=== PATIENT | female | born 2000 | race Two or more races ===

== ENCOUNTER 2023-07-04 12:25 | Inpatient (IN) ==
--- NOTE | 2023-07-04 13:06 | Emergency Department Note ---
History of Present Illness General Chief complaint: Mental Health Evaluation Stated complaint: MENTAL HEALTH EVAL Time Seen by Provider: 07/04/23 12:55 History of Present Illness 22-year-old female presents emergency department as she reportedly spoke to outpatient psychiatry and stated that she wanted to harm herself by running in front of car; patient denies any homicidal ideations. Patient denies any inges tions, patient denies alcohol or drugs. Patient was brought in by the police. She states that she is under a lot of stress due to academics and has been evaluated in the past including seeing a counselor last semester. Patient has no other current complaints. Past Med/Surg History Social History Smoking Status: Never smoker Feels Safe at Home: Yes Gender Identity: Female Immunizations: Past medical history includes anxiety Social history patient is a [employer] student Review of Systems A total of 10 systems reviewed and were otherwise negative Psychiatric: + suicidal ideation Physical Exam Vital Signs Vital Signs - 24 hr 07/04/23 12:28 07/04/23 16:00 Temperature 36.5 C Temperature Source Skin Pulse Rate 99 H Pulse Rate [Right Finger] 94 H Pulse Rhythm [Right Finger] Regular Pulse Strength [Right Finger] Normal Respiratory Rate 18 18 Respiratory Effort / Characteristics Non-Labored Spontaneous Respiratory Depth Normal Respiratory Pattern Regular Blood Pressure 127/71 Blood Pressure [Right Arm] 118/69 Blood Pressure Mean 89 Blood Pressure Mean [Right Arm] 85 Blood Pressure Position [Right Arm] Lying Pulse Oximetry 99 96 Oxygen Delivery Method Room Air Sepsis Recent Fever Within 48 Hours No Sepsis New/Unexplained Change in Mental Status No Sepsis Action Taken by Nursing No Action Required GENERAL: Patient is awake alert in no acute distress patient is resting comfortably and showing no signs of anxiety EYES: The conjunctivae are clear. The pupils are round and reactive. EARS, NOSE, MOUTH AND THROAT: The nose is without any evidence of any deformity. Mucous membranes are moist. Tongue is midline. NECK: The neck is nontender and supple. RESPIRATORY: Normal respiratory effort is noted there is no evidence of wheezing rhonchi or rales CARDIOVASCULAR: Regular rate and rhythm noted there no murmurs rubs or gallops normal S1 normal S2. GASTROINTESTINAL: The abdomen is soft. Abdomen is nontender. BACK: No midline tenderness or or step-off noted range of motion in flexion extension as well as rotation no signs of muscle spasm noted MUSCULOSKELETAL/EXTREMITIES: There is no evidence of gross deformity full range of motion is noted in the hips and shoulders. SKIN: There is no obvious evidence of any rash. There are no petechiae, pallor or cyanosis noted. NEUROLOGIC: Patient is awake alert and oriented x3 strength is symmetric PSYCH: Suicidal ideation Course Reevaluation(s) Reevaluation #1: Rechecked the patient the patient has no history of anemia no family history of anemia. The patient states she does have at times heavy periods. She has never had blood work done in the past. Time: 14:30 Reevaluation #2: Patient is medically cleared for psychiatric evaluation Time: 14:30 Medical Decision Making Medical Records Attestation: I reviewed the patient's medical records. Home Medications Current Medication List: was personally reviewed by me Laboratory Data Attestation: I reviewed the patient's lab results. Labs interpreted by me patient has a hemoglobin of 8.1 which is a sign of anemia, patient has hypokalemia 07/04/23 13:12 07/04/23 13:12 Lab Results 07/04/23 07/04/23 07/04/23 Range/Units 13:12 13:12 13:12 WBC 8.95 (4.8-10.8) K/ul RBC 4.44 (4.20-5.40) M/uL Hgb 8.1 L (12.0-16.0) g/dl Hct 27.9 L (37.0-47.0) % MCV 62.8 L (80.0-100.0) fL MCH 18.2 L (25.0-34.0) pg MCHC 29.0 L (32.0-36.0) g/dL RDW Std Deviation 39.2 (36.4-46.3) fL RDW Coeff of Bhavik 18.0 H (11.5-14.5) % Plt Count 369 (130-400) K/uL MPV 9.8 (9.4-12.4) fL Immature Gran % (Auto) 0.2 % Neut % (Auto) 47.3 % Lymph % (Auto) 30.6 % Huron % (Auto) 6.6 % Eos % (Auto) 14.7 % Baso % (Auto) 0.6 % Neut # (Auto) 4.23 (1.40-6.50) K/uL Lymph # (Auto) 2.74 (1.20-3.40) K/uL Huron # (Auto) 0.59 (0.11-0.59) K/uL Eos # (Auto) 1.32 H (0.00-0.50) K/uL Baso # (Auto) 0.05 (0.00-0.20) K/uL Immature Gran # (Auto) 0.02 (0.01-0.20) K/uL Hypochromasia Present Microcytosis Present Sodium 137 (136-145) mmol/L Potassium 3.2 L (3.5-5.1) mmol/L Chloride 107 (98-107) mmol/L Carbon Dioxide 25 (21-32) mmol/L Anion Gap 5 (3-11) BUN 8 (6-23) mg/dl Creatinine 0.61 (0.6-1.2) mg/dl Est Cr Clr Drug Dosing 99.5 ml/min Est GFR ( Amer) > 150.0 ml/min Est GFR (Non-Af Amer) 129.6 ml/min BUN/Creatinine Ratio 13.1 (10-20) Glucose 120 H (70-99(Fasting)) mg/dl Calcium 9.4 (8.6-10.3) mg/dl Total Bilirubin 0.3 (0.2-1.0) mg/dl AST 20 (13-39) U/L ALT 9 (7-52) U/L Alkaline Phosphatase 60 (34-104) U/L Total Protein 8.4 H (6.0-8.3) gm/dl Albumin 4.7 (3.4-5.0) gm/dl Globulin 3.7 (2.5-4.0) gm/dl Albumin/Globulin Ratio 1.3 (0.9-2) TSH 2.331 (0.300-4.500) uIu/ml Urine Color Urine Appearance (Clear) Urine pH (4.5-7.5) Ur Specific Cylinder (1.000-1.030) Urine Protein (Negative) Urine Glucose (UA) (Negative) Urine Ketones (Negative) Urine Blood (Negative) Urine Nitrite (Negative) Urine Bilirubin (Negative) Urine Urobilinogen (Negative) Ur Leukocyte Esterase (Negative) Urine Test (Negative) Salicylates < 3.0 L (3.0-30) mg/dl Acetaminophen < 3 L (10-30) ug/ml Ethyl Alcohol mg/dL (<10.0) mg/dl SARS-CoV-2, RNA, NAAT (NEGATIVE) 07/04/23 07/04/23 07/04/23 Range/Units 13:12 Unknown Unknown WBC (4.8-10.8) K/ul RBC (4.20-5.40) M/uL Hgb (12.0-16.0) g/dl Hct (37.0-47.0) % MCV (80.0-100.0) fL MCH (25.0-34.0) pg MCHC (32.0-36.0) g/dL RDW Std Deviation (36.4-46.3) fL RDW Coeff of Bhavik (11.5-14.5) % Plt Count (130-400) K/uL MPV (9.4-12.4) fL Immature Gran % (Auto) % Neut % (Auto) % Lymph % (Auto) % [place] % (Auto) % Eos % (Auto) % Baso % (Auto) % Neut # (Auto) (1.40-6.50) K/uL Lymph # (Auto) (1.20-3.40) K/uL Huron # (Auto) (0.11-0.59) K/uL Eos # (Auto) (0.00-0.50) K/uL Baso # (Auto) (0.00-0.20) K/uL Immature Gran # (Auto) (0.01-0.20) K/uL Hypochromasia Microcytosis Sodium (136-145) mmol/L Potassium (3.5-5.1) mmol/L Chloride (98-107) mmol/L Carbon Dioxide (21-32) mmol/L Anion Gap (3-11) BUN (6-23) mg/dl Creatinine (0.6-1.2) mg/dl Est Cr Clr Drug Dosing ml/min Est GFR ( Amer) ml/min Est GFR (Non-Af Amer) ml/min BUN/Creatinine Ratio (10-20) Glucose (70-99(Fasting)) mg/dl Calcium (8.6-10.3) mg/dl Total Bilirubin (0.2-1.0) mg/dl AST (13-39) U/L ALT (7-52) U/L Alkaline Phosphatase (34-104) U/L Total Protein (6.0-8.3) gm/dl Albumin (3.4-5.0) gm/dl Globulin (2.5-4.0) gm/dl Albumin/Globulin Ratio (0.9-2) TSH (0.300-4.500) uIu/ml Urine Color Yellow Urine Appearance Clear (Clear) Urine pH 5.5 (4.5-7.5) Ur Specific Cylinder 1.006 (1.000-1.030) Urine Protein Negative (Negative) Urine Glucose (UA) Negative (Negative) Urine Ketones Negative (Negative) Urine Blood Negative (Negative) Urine Nitrite Negative (Negative) Urine Bilirubin Negative (Negative) Urine Urobilinogen Negative (Negative) Ur Leukocyte Esterase Negative (Negative) Urine Test Negative (Negative) Salicylates (3.0-30) mg/dl Acetaminophen (10-30) ug/ml Ethyl Alcohol mg/dL < 10.0 (<10.0) mg/dl SARS-CoV-2, RNA, NAAT (NEGATIVE) 07/04/23 Range/Units Unknown WBC (4.8-10.8) K/ul RBC (4.20-5.40) M/uL Hgb (12.0-16.0) g/dl Hct (37.0-47.0) % MCV (80.0-100.0) fL MCH (25.0-34.0) pg MCHC (32.0-36.0) g/dL RDW Std Deviation (36.4-46.3) fL RDW Coeff of Bhavik (11.5-14.5) % Plt Count (130-400) K/uL MPV (9.4-12.4) fL Immature Gran % (Auto) % Neut % (Auto) % Lymph % (Auto) % [place] % (Auto) % Eos % (Auto) % Baso % (Auto) % Neut # (Auto) (1.40-6.50) K/uL Lymph # (Auto) (1.20-3.40) K/uL [place] # (Auto) (0.11-0.59) K/uL Eos # (Auto) (0.00-0.50) K/uL Baso # (Auto) (0.00-0.20) K/uL Immature Gran # (Auto) (0.01-0.20) K/uL Hypochromasia Microcytosis Sodium (136-145) mmol/L Potassium (3.5-5.1) mmol/L Chloride (98-107) mmol/L Carbon Dioxide (21-32) mmol/L Anion Gap (3-11) BUN (6-23) mg/dl Creatinine (0.6-1.2) mg/dl Est Cr Clr Drug Dosing ml/min Est GFR ( Amer) ml/min Est GFR (Non-Af Amer) ml/min BUN/Creatinine Ratio (10-20) Glucose (70-99(Fasting)) mg/dl Calcium (8.6-10.3) mg/dl Total Bilirubin (0.2-1.0) mg/dl AST (13-39) U/L ALT (7-52) U/L Alkaline Phosphatase (34-104) U/L Total Protein (6.0-8.3) gm/dl Albumin (3.4-5.0) gm/dl Globulin (2.5-4.0) gm/dl Albumin/Globulin Ratio (0.9-2) TSH (0.300-4.500) uIu/ml Urine Color Urine Appearance (Clear) Urine pH (4.5-7.5) Ur Specific Cylinder (1.000-1.030) Urine Protein (Negative) Urine Glucose (UA) (Negative) Urine Ketones (Negative) Urine Blood (Negative) Urine Nitrite (Negative) Urine Bilirubin (Negative) Urine Urobilinogen (Negative) Ur Leukocyte Esterase (Negative) Urine Test (Negative) Salicylates (3.0-30) mg/dl Acetaminophen (10-30) ug/ml Ethyl Alcohol mg/dL (<10.0) mg/dl SARS-CoV-2, RNA, NAAT NEGATIVE (NEGATIVE) MDM Narrative Medical decision making differential diagnosis includes suicidal ideation, homicidal ideation, anxiety reaction Plan is to check psychiatric labs, case management consult Case management states that the patient will be placed for psychiatric evaluation Patient is currently medically cleared, the patient has no symptoms to suggest severe anemia Pt has been referred to [address] [place] [address] for eval; Case turned over to Dr Scott at 1630 pending disposition Impression & Plan Suicidal ideation, Anemia Discharge Plan Visit Data Chief Complaint: Mental Health Evaluation Stated Complaint: MENTAL HEALTH EVAL ED Provider: Cher Scott Discharge Problem: Suicidal ideation, Anemia Patient Disposition: Still a Patient Forms Stand Alone Forms: [facility] [place], Suicide Prevention Resources Referrals Referrals: PCP,NO [Primary Care Provider] -
[2023-07-04 13:39] LABS: Basophils # (auto) 0.05 K/uL (0.00-0.20); Basophils % (auto) 0.6 %; Eosinophils # (auto) 1.32 K/uL (0.00-0.50); Eosinophils % (auto) 14.7 %; Hematocrit (blood only) 27.9 % (37.0-47.0); Hemoglobin 8.1 g/dl (12.0-16.0); Immature Granulocytes # (auto) 0.02 K/uL (0.01-0.20); Immature Granulocytes % (auto) 0.2 %; Lymphocytes # (auto) 2.74 K/uL (1.20-3.40); Lymphocytes % (auto) 30.6 %; Mean Corpuscular Hemoglobin 18.2 pg (25.0-34.0); Mean Corpuscular Volume 62.8 fL (80.0-100.0); Monocytes # (auto) 0.59 K/uL (0.11-0.59); Monocytes % (auto) 6.6 %; Neutrophils # (auto) 4.23 K/uL (1.40-6.50); Neutrophils % (auto) 47.3 %; RDW Standard Deviation 39.2 fL (36.4-46.3); Red Blood Count 4.44 M/uL (4.20-5.40); White Blood Count 8.95 K/ul (4.8-10.8)
[2023-07-04 13:51] LABS: Alanine Aminotransferase 9 U/L (7-52); Albumin Globulin Ratio 1.3 (0.9-2); Albumin Level 4.7 gm/dl (3.4-5.0); Alkaline Phosphatase 60 U/L (34-104); Anion Gap 5 (3-11); Aspartate Aminotransferase 20 U/L (13-39); BUN Creatinine Ratio 13.1 (10-20); Bilirubin,Total 0.3 mg/dl (0.2-1.0); Blood Urea Nitrogen 8 mg/dl (6-23); Calcium 9.4 mg/dl (8.6-10.3); Carbon Dioxide 25 mmol/L (21-32); Chloride 107 mmol/L (98-107); Creatinine Clr Calc Pharmacy 99.5 ml/min; Est GFR (African American) > 150.0 ml/min; Est GFR (Non-African American) 129.6 ml/min; Globulin 3.7 gm/dl (2.5-4.0); Glucose 120 mg/dl (70-99(Fasting)); Potassium 3.2 mmol/L (3.5-5.1); Sodium 137 mmol/L (136-145); Total Protein 8.4 gm/dl (6.0-8.3)
[2023-07-04 13:55] LABS: Acetaminophen < 3 ug/ml (10-30); Salicylate < 3.0 mg/dl (3.0-30)
[2023-07-04 14:03] LABS: Hypochromasia Present; Mean Platelet Volume 9.8 fL (9.4-12.4); Microcytosis Present; Platelet Count 369 K/uL (130-400)
[2023-07-04 14:04] LABS: Thyroid Stimulating Hormone 2.331 uIu/ml (0.300-4.500)
[2023-07-04 15:04] LABS: Pregnancy Test, Urine Negative (Negative)
[2023-07-04 15:15] LABS: Appearance Urine Clear (Clear); Bilirubin Urine Negative (Negative); Blood Urine Negative (Negative); Color Urine Yellow; Glucose Urine UA Negative (Negative); Ketones Urine Negative (Negative); Leukocyte Esterase Urine Negative (Negative); Nitrite Urine Negative (Negative); Protein Urine Negative (Negative); Specific Gravity Urine 1.006 (1.000-1.030); Urobilinogen Urine Negative (Negative); pH Urine 5.5 (4.5-7.5)
--- NOTE | 2023-07-04 17:00 | Emergency Department Note ---
ED Visit Note I received this patient in signout at the change of shift from Dr. Blunt pending bed search on a 201 as she is suicidal with a plan. Patient was ex cepted to [facility] [address] for inpatient psychiatric admission. Please refer to previous documentation for further details of the history, physical and visit. .
[2023-07-04 17:09] LABS: Amphetamines+Metham, Urine Neg (Neg); Barbiturates, Urine Neg (Neg); Benzodiazepine, Urine Neg (Neg); Cocaine, Urine Neg (Neg); MDMA (Ecstacy), Urine Neg (Neg); Methadone, Urine Neg (Neg); Opiate, Urine Neg (Neg); Phencyclidine, Urine Neg (Neg)
[2023-07-05] MEDS ORDERED: BISMUTH SUBSALICYLATE LIQD 236 ML PO PRN (00:08)
[2023-07-05] MEDS ORDERED: hydrOXYzine HCl 25 MG TAB PO PRN ×2 (00:08)
[2023-07-05] MEDS ORDERED: MAGNESIUM HYDROXIDE SUSP 30 ML UDC PO PRN (00:08)
[2023-07-05] MEDS ORDERED: SODIUM CHLORIDE 0.65% NA SOLN 45 ML (OCEAN) PRN (00:08)
[2023-07-05] MEDS ORDERED: ACETAMINOPHEN 325 MG TAB PO PRN (00:08)
[2023-07-05] MEDS ORDERED: ALUMINUM/MAGNESIUM SUSP 30 ML UDC PO PRN (00:08)
--- NOTE | 2023-07-05 11:11 | History & Physical ---
Date of Service July 05, 2023 Impression / Recommendations Impression Profoundly depressed young woman with a long history of depressive episodes and chronic suicidal thoughts but no history of any previous diagnosis or treatment. She presents with classic melancholic features. She also reports anxiety with numerous features of panic. She minimizes and elides alcohol use, but has been drinking more than usual. It also transpires that she has a severe vitamin d deficiency. She is currently psychiatrically unstable and requires psychiatric hospitalization for safety, stabilization, and medication management. Risks and benefits of, and alternatives to, the use of mirtazapine (Remeron) for Major Depression symptoms, especially including insomnia and poor appetite were reviewed. This discussion included but was not limited to issues known potentially to be associated with use of such medication, especially at high doses or with longer use, including sedation, weight gain, GI side effects, or rarely induction or worsening of suicidal thoughts about which there is an FDA w arning for adolescents and young adults. The patient agreed to start a trial of mirtazapine. Overall I spent a total of 73 minutes for this admission including review of chart records, review of test results, direct evaluation of the patient [id number], counseling the patient, reconciling and ordering medication, medication education with the patient, risk assessment, discussion during interdisciplinary treatment rounds, and documentation in the electronic health record. (1) Major depressive disorder, recurrent, severe without psychotic features: (2) Vitamin D deficiency: Plan The patient was admitted to the [facility] ([facility]) on q15 minute checks (behavioral with suicide precautions) for safety.The patient will participate in group, recreational, and milieu therapies and will be offered additional individual and family sessions as clinically appropriate. * start mirtazapine 30 mg QPM * start vitamin D2 50,000 IU twice a week Inventory Assets Strengths: voluntary, intelligent Needs: safety and stabilization, medication adjustment, additional coping skills, increased outpatient services Suicide Risk Level Suicide Risk Level: High-Moderate (q15 min suicide checks) Suicide Risk Level Comments: contracts for safety here, but intense suicidal thoughts prior to admission Risk Factors Assessment Male: No : No Do You Have Access To A Gun?: No Health Problems: No Mental Health Diagnoses: No Substance Use Disorders: Yes Previous Attempt: No Previous Psychiatric Hospitalization: No Protective Factors Assessment : No Responsible for Young Children: No Employed: No Supportive Family: No Psychiatric History Identifying Data CAROLINA NORWOOD is a 22-year-old F who currently lives in a dorm room at [employer] alone, has a history of depression symptoms but no previous diagnosis or treatment, and was admitted on 07/04/23 17:58 on a 201 voluntary commitment for suicidal thoughts. Chief Complaint "I'm not doing OK". History of Present Illness As part of a thorough review of the available medical records, I have read and confirmed the following note by the ED physician: "22-year-old female presents emergency department as she reportedly spoke to outpatient psychiatry and stated that she wanted to harm herself by running in front of car; patient denies any homicidal ideations. Patient denies any ingestions, patient denies alcohol or drugs. Patient was brought in by the police. She states that she is under a lot of stress due to academics and has been evaluated in the past including seeing a counselor last semester." and the following notes by the ED psychiatric family caseworker: "The patient initially stated she didnt have suicidal ideation but when questioned about her comments to [facility], she admitted to thinking of running in front of a car. When asked later if she was still having suicidal ideations, she laughed and said yes. The patient reports her main stressor is school and that she reached out to [facility] looking for help. The patient denies any drug or alcohol use or ever being inpatient for treatment (reports she utilized [facility] as well last year). Medical clearance explained." "Update received from Ellen with [facility] prior to meeting with the patient. She reports they dont feel they have enough criteria to petition for a 302, but the patients stories seemed to be inconsistent at times. She reports the patient had moved and she didnt know where, but the told them they moved to [place] and she just didnt know their address. Ellen also reports the patient initially denied D&A but then admitted to use." "Patient presents sad, flat, speaks softly, but remains cooperative in answering questions asked of her. Patient reports suicidal ideations for as long as she remembers, but recently these thought now felt real. Patient identified plan as to jump in front of car or train or to mix medications with alcohol. Patient is very unsure if she can be self by herself. Patient has not been submitting coursework for 5 weeks, reporting school was primary motivation for living, but she no longer feels that way. Patient reports depressive symptoms as socially withdrawing, lack of motivation, loss of daily functioning, feelings of helpless/hopelessness, decrease in concentration, appetite and completing ADLs. Patient reports mild anxiety on most days with symptoms of excessive worry, palpitations and trembling. Patient reports occasional alcohol use, denies drug or tobacco use. 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 Although patient is not submitting school work, she is taking quizzes and tests and has passing grades. Patient saw [facility] today, but has a history of seeing them last semester. Patient does not taking any medications, nor has any medical conditions. Explained to patient that the doctors recommendation is for inpatient psychiatric treatment, patient is agreeable to sign herself in and to participate in programming." Review of the medical record reveals no previous or outside psychiatric records. Review of pertinent labs reveals they are significant for microcytic, hypoch romic anemia, hypokalemia. A urine toxicology screen was negative for all tested substrates. BAL was <10. A vitamin D level drawn earlier today was severely deficient at 8.4 ng/mL. Pt reports a history of episodes during which she has no interest, energy, motivation and during which her concentration is poor, she's anhedonic, her sleep and appetite are poor, and she feels hopeless or suicidal. She has never sought treatment before. The current episode started about a month and a half ago. She has spent most of her time in bed, but says she has a lot of trouble getting to sleep then wakes often. She never feels rested after sleeping. She insists her appetite is "normal" and that she goes to the [facility] for meals. Her appearance and her report of rarely getting out of bed seem to be at odds with this. Despite saying that her academic work is what keeps her going, she hasn't attended classes for over a month. She says her grades are OK because she does tests and quizzes online. Her chronic vague suicidal thoughts have become intrusive and constant and she's begun entertaining specific plans such as jumping in front of a train or overdosing on something. She acknowledges she's "been drinking some" but is very guarded about amounts. Past Psychiatric History Previous Psych History: has not sought treatment in the past Current Psychiatric Diagnosis: none Previous Psych Admissions: none Do You Have Access To A Gun?: No History of Previous Suicide Attempt: No Past Medication Trials: none Allergies Allergy/AdvReac Type Severity Reaction Status Date / Time No Known Allergies Allergy Unverified 07/05/23 00:07 Family History Family History of: Other Mood Disorders Family Mental Health History Comment: dad- PTSD, suicide attempt 1 year ago Alcohol History Hx of Alcohol Use Over the Past 12 Months: Yes AUDIT Total Score: 4 Smoking Use Have You Smoked or Used Tobacco Products in the Last 30 Days: No Smoking Status: Never smoker Substance History Hx of Prescription Med Misuse Over the Past 12 Months: No Hx of Over the Counter Med Misuse Over the Past 12 Months: No Hx of Inhalent Misuse Over the Past 12 Months: No Hx of Organic Substance Use Over the Past 12 Months: No Hx of Illegal Substances/Street Drug Use Over Past 12 Months: No Problems as a Result of Past Substance Use: None Identified Problems as a Result of Past Substance Use Comments: Once every 3 months Personal History Living Arrangements: [facility] Highest Grade Completed: College Highest Grade Completed Comment: 4th year [employer] student Marital Status: Single Number Of Children: 0 Patient History Medical History (Updated 07/05/23 @ 16:02 by Roni Chilel MD) Major depressive disorder, recurrent, severe without psychotic features Vitamin D deficiency Social History Smoking Status: Never smoker Preferred Language: Prydeinig Communication Ability: Effective Claims Service Adjustor Required: Voice Feels Safe at Home: No Gender Identity: Female Assistive Devices: Glasses Review of Systems Psychiatric: + depression, + hopelessness, + anhedonia, + abnormal sleep pattern, + suicidal ideation, + anxiety and + difficulty concentrating Physical Exam Psychiatric: Orientation: alert, oriented to person, oriented to place, oriented to time and cooperative Apperance: appropriately dressed and appropriately groomed thin Eye Contact: + poor eye contact sits repetitively picking at the hems of her trousers or, when not doing that, wringing her hands Speech: + abnormal rate/rhythm/volume of speech (increased latency of response, slow, quiet, brief) does not respond to all questions Affect: + labile affect (ranging from flat to tearful) Mood: + depressed mood and + anxious mood Thought Process: linear/logical thought process and thought association intact Thought Content: + cognitive distortions, + hopelessness, + worthlessness, + loneliness and + self deprecation Suicidal Thoughts: denies suicidal intent; + reports suicidal thoughts and + reports suicidal plan Homicidal Thoughts: denies homicidal thoughts Hallucinations: no auditory hallucinations and no visual hallucinations Cognition: recent memory grossly intact, remote memory grossly intact and language grossly intact; + attention not intact (appears very distracted) Estimated Intelligence: consistent with education level Insight: + limited insight Judgment: + limited judgement Vital Signs (Past 24 Hours): Last Vital Signs Temp 36.9 C 07/05/23 06:39 Pulse 84 07/05/23 06:39 Resp 16 07/05/23 06:39 BP 111/75 07/05/23 06:39 Pulse Ox 100 07/04/23 18:36 O2 Del Method Room Air 07/04/23 18:36 Exam Statement: A physical exam was performed in the ED for the purposes of medical clearance. I accept that physical as correct and adequate for the purposes of the inpatient physical exam. Results & Data ([facility]) Laboratory Results Laboratory Results - last 24 hr 07/04/23 07/04/23 07/04/23 13:12 13:12 13:12 WBC 8.95 RBC 4.44 Hgb 8.1 L Hct 27.9 L MCV 62.8 L MCH 18.2 L MCHC 29.0 L RDW Std Deviation 39.2 RDW Coeff of Bhavik 18.0 H Plt Count 369 MPV 9.8 Immature Gran % (Auto) 0.2 Neut % (Auto) 47.3 Lymph % (Auto) 30.6 Craig % (Auto) 6.6 Eos % (Auto) 14.7 Baso % (Auto) 0.6 Neut # (Auto) 4.23 Lymph # (Auto) 2.74 Craig # (Auto) 0.59 Eos # (Auto) 1.32 H Baso # (Auto) 0.05 Immature Gran # (Auto) 0.02 Hypochromasia Present Microcytosis Present Sodium 137 Potassium 3.2 L Chloride 107 Carbon Dioxide 25 Anion Gap 5 BUN 8 Creatinine 0.61 Est Cr Clr Drug Dosing 99.5 Est GFR ( Amer) > 150.0 Est GFR (Non-Af Amer) 129.6 BUN/Creatinine Ratio 13.1 Glucose 120 H Calcium 9.4 Total Bilirubin 0.3 AST 20 ALT 9 Alkaline Phosphatase 60 Total Protein 8.4 H Albumin 4.7 Globulin 3.7 Albumin/Globulin Ratio 1.3 TSH 2.331 Urine Color Urine Appearance Urine pH Ur Specific [place] Urine Protein Urine Glucose (UA) Urine Ketones Urine Blood Urine Nitrite Urine Bilirubin Urine Urobilinogen Ur Leukocyte Esterase Urine Test Salicylates < 3.0 L Urine Opiates Screen Ur Methadone, Qual Acetaminophen < 3 L Urine Barbiturates Ur Phencyclidine (PCP) U Amphetamin/Meth Scrn MDMA (Ecstasy) Screen U Benzodiazepines Scrn Ur Cocaine Metabolite U Marijuana (THC) Screen Ethyl Alcohol mg/dL SARS-CoV-2, RNA, NAAT 07/04/23 07/04/23 07/04/23 13:12 Unknown Unknown WBC RBC Hgb Hct MCV MCH MCHC RDW Std Deviation RDW Coeff of Bhavik Plt Count MPV Immature Gran % (Auto) Neut % (Auto) Lymph % (Auto) Craig % (Auto) Eos % (Auto) Baso % (Auto) Neut # (Auto) Lymph # (Auto) Craig # (Auto) Eos # (Auto) Baso # (Auto) Immature Gran # (Auto) Hypochromasia Microcytosis Sodium Potassium Chloride Carbon Dioxide Anion Gap BUN Creatinine Est Cr Clr Drug Dosing Est GFR ( Amer) Est GFR (Non-Af Amer) BUN/Creatinine Ratio Glucose Calcium Total Bilirubin AST ALT Alkaline Phosphatase Total Protein Albumin Globulin Albumin/Globulin Ratio TSH Urine Color Yellow Urine Appearance Clear Urine pH 5.5 Ur Specific Pa[place] 1.006 Urine Protein Negative Urine Glucose (UA) Negative Urine Ketones Negative Urine Blood Negative Urine Nitrite Negative Urine Bilirubin Negative Urine Urobilinogen Negative Ur Leukocyte Esterase Negative Urine Test Salicylates Urine Opiates Screen Neg Ur Methadone, Qual Neg Acetaminophen Urine Barbiturates Neg Ur Phencyclidine (PCP) Neg U Amphetamin/Meth Scrn Neg MDMA (Ecstasy) Screen Neg U Benzodiazepines Scrn Neg Ur Cocaine Metabolite Neg U Marijuana (THC) Screen Neg Ethyl Alcohol mg/dL < 10.0 SARS-CoV-2, RNA, NAAT 07/04/23 07/04/23 Unknown Unknown WBC RBC Hgb Hct MCV MCH MCHC RDW Std Deviation RDW Coeff of Bhavik Plt Count MPV Immature Gran % (Auto) Neut % (Auto) Lymph % (Auto) Craig % (Auto) Eos % (Auto) Baso % (Auto) Neut # (Auto) Lymph # (Auto) Craig # (Auto) Eos # (Auto) Baso # (Auto) Immature Gran # (Auto) Hypochromasia Microcytosis Sodium Potassium Chloride Carbon Dioxide Anion Gap BUN Creatinine Est Cr Clr Drug Dosing Est GFR ( Amer) Est GFR (Non-Af Amer) BUN/Creatinine Ratio Glucose Calcium Total Bilirubin AST ALT Alkaline Phosphatase Total Protein Albumin Globulin Albumin/Globulin Ratio TSH Urine Color Urine Appearance Urine pH Ur Specific [place] Urine Protein Urine Glucose (UA) Urine Ketones Urine Blood Urine Nitrite Urine Bilirubin Urine Urobilinogen Ur Leukocyte Esterase Urine Test Negative Salicylates Urine Opiates Screen Ur Methadone, Qual Acetaminophen Urine Barbiturates Ur Phencyclidine (PCP) U Amphetamin/Meth Scrn MDMA (Ecstasy) Screen U Benzodiazepines Scrn Ur Cocaine Metabolite U Marijuana (THC) Screen Ethyl Alcohol mg/dL SARS-CoV-2, RNA, NAAT NEGATIVE Current Inpatient Medications Current Inpatient Medications: Current Inpatient Medications Acetaminophen (Acetaminophen 325 Mg Tab) 650 mg PO Q4H PRN PRN Reason: Headache or Minor Fever Stop: 08/04/23 00:07 Al Hydrox/Mg Hydrox/Simethicone (Aluminum/Magnesium Susp 30 Ml Udc) 30 ml PO Q4H PRN PRN Reason: GI Upset Stop: 08/04/23 00:07 Bismuth Subsalicylate (Bismuth Subsalicylate Liqd 236 Ml) 15 ml PO PRN PRN PRN Reason: Loose Stool Stop: 08/04/23 00:07 Hydroxyzine HCl (Hydroxyzine Hcl 25 Mg Tab) 50 mg PO HSZ PRN PRN Reason: Insomnia Stop: 08/04/23 00:07 Hydroxyzine HCl (Hydroxyzine Hcl 25 Mg Tab) 25 mg PO Q4H PRN PRN Reason: Anxiety Stop: 08/04/23 00:07 Magnesium Hydroxide (Magnesium Hydroxide Susp 30 Ml Udc) 30 ml PO DAILY PRN PRN Reason: Constipation Stop: 08/04/23 00:07 Mirtazapine (Mirtazapine Tab 15 Mg Tab) 30 mg PO HS JOANNA Stop: 08/04/23 21:59 Sodium Chloride (Sodium Chloride 0.65% Na Soln 45 Ml ([place])) 1 - 2 sprays NA PRN PRN PRN Reason: Nasal Dryness/Congestion Stop: 08/04/23 00:07
[2023-07-05 12:55] LABS: Folate (Folic Acid),Ser orPlas > 22.30 ng/ml (>5.38)
[2023-07-05 12:56] LABS: Vitamin B12 300 pg/ml (180-914)
[2023-07-05] MEDS: ERGOCALCIFEROL 50,000 UNITS 1250 MCG CAP PO SCH (16:34)
[2023-07-05] MEDS: MIRTAZAPINE TAB 15 MG TAB PO SCH (21:18)
--- NOTE | 2023-07-06 09:19 | Psychiatric Progress Note ---
Date of Service July 06, 2023 Impression / Recommendations Impression Agree with assessment per Dr. Chilel: Profoundly depressed young woman with a long history of depressive episodes and chronic suicidal thoughts but no history of any previous diagnosis or treatment. She presents with classic melancholic features. She also reports anxiety with numerous features of panic. She minimizes and elides alcohol use, but has been drinking more than usual. It also transpires that she has a severe vitamin d deficiency. She is currently psychiatrically unstable and requires psychiatric hospitalization for safety, stabilization, and medication management. 07/06/2023: Reviewed interim progress. Slept better with mirtazapine but continues to present as very depressed as well as likely significant anxiety with latent responses, flat affect, little spontaneous conversation, and poor eye contact. Unclear if PADILLA is due to mirtazapine, she would like to continue with this for now, discussed option for augmentation with additional SSRI, she prefers to try mirtazapine monotherapy for now which is reasonable. Overall, I spent a total of 35 minutes with this case including review of chart records, direct evaluation of the patient at bedside, counseling the patient, discussion during interdisciplinary treatment rounds, risk assessment, and documentation in the electronic health record. (1) Major depressive disorder, recurrent, severe without psychotic features: (2) Vitamin D deficiency: Plan 07/06/2023: Continue current medications and tx plan. 07/05/2023: The patient [facility] on q15 minute checks (behavioral with suicide precautions) for safety.The patient will participate in group, recreational, and milieu therapies and will be offered additional individual and family sessions as clinically appropriate. * start mirtazapine 30 mg QPM * start vitamin D2 50,000 IU twice a week Inventory Assets Strengths: voluntary, intelligent Needs: safety and stabilization, medication adjustment, additional coping skills, increased outpatient services Suicide Risk Level Suicide Risk Level: High-Moderate (q15 min suicide checks) (severe depression with SI prior to admission, feels safe in the hospital and agrees to let staff know if she feels unsafe or requires additional support) Suicide Risk Level Comments: contracts for safety here, but intense suicidal thoughts prior to admission Risk Factors Assessment Male: No : No Do You Have Access To A Gun?: No Health Problems: No Mental Health Diagnoses: No Substance Use Disorders: Yes Previous Attempt: No Previous Psychiatric Hospitalization: No Protective Factors Assessment : No Responsible for Young Children: No Employed: No Supportive Family: No Interval History Identifying Information CAROLINA NORWOOD is a 22-year-old F who currently lives in a dorm room at [employer] alone, has a history of depression symptoms but no previous diagnosis or treatment, and was admitted on 07/04/23 17:58 on a 201 voluntary commitment for suicidal thoughts. Chief Complaint "It put me to sleep pretty quickly". Review of Systems Sleep Information Total Hours of Sleep: 6.75 Meal Information Percent Meal Consumed - Breakfast: 75 Percent Meal Consumed - Lunch: 100 Percent Meal Consumed - Dinner: 80 Subjective Subjective Patient was seen & assessed and interval progress reviewed with treatment team nursing and social work. Very shy and reserved but attending groups. Rated her mood as a 5 and described it as "confused" last evening. Slept well with mirtazapine but having headache today which she thinks could be side effect though notes she often has headaches at baseline. Offered acetaminophen which she is agreeable to taking. Has less SI today which she attributes to pain from her headache being a distraction. Physical Exam Psychiatric Orientation: alert, oriented x 3 and cooperative Apperance: appropriately dressed and appropriately groomed Eye Contact: + poor eye contact Motor Behavior: no abnormal motor movements Speech: + abnormal rate/rhythm/volume of speech (increased latency of response, slow, quiet, brief) Affect: + flat affect Mood: + depressed mood and + anxious mood Thought Process: linear/logical thought process (sparse) Thought Content: + cognitive distortions, reality based without delusions and + hopelessness Suicidal Thoughts: denies suicidal plan (none for hospital) and denies suicidal intent; + reports suicidal thoughts (intermittent ) Homicidal Thoughts: denies homicidal thoughts Hallucinations: no auditory hallucinations and no visual hallucinations Cognition: recent memory grossly intact, remote memory grossly intact and language grossly intact; + attention not intact (unclear if due to latency) Estimated Intelligence: consistent with education level Insight: + limited insight Judgment: + limited judgement Vital Signs (Past 24 Hours) Last Vital Signs Temp 37.1 C 07/06/23 06:36 Pulse 78 07/06/23 06:36 Resp 16 07/06/23 06:36 BP 92/57 L 07/06/23 06:36 Pulse Ox 100 07/04/23 18:36 O2 Del Method Room Air 07/04/23 18:36 Results & Data ([facility]) Laboratory Results Laboratory Results - last 24 hr 07/05/23 07/05/23 07/05/23 11:52 11:52 11:52 ESR 29 H Vitamin B12 300 25-OH Vitamin D Total 8.4 L Folate > 22.30 Current Inpatient Medications Current Inpatient Medications: Current Inpatient Medications Acetaminophen (Acetaminophen 325 Mg Tab) 650 mg PO Q4H PRN PRN Reason: Headache or Minor Fever Stop: 08/04/23 00:07 Al Hydrox/Mg Hydrox/Simethicone (Aluminum/Magnesium Susp 30 Ml Udc) 30 ml PO Q4H PRN PRN Reason: GI Upset Stop: 08/04/23 00:07 Bismuth Subsalicylate (Bismuth Subsalicylate Liqd 236 Ml) 15 ml PO PRN PRN PRN Reason: Loose Stool Stop: 08/04/23 00:07 Ergocalciferol (Ergocalciferol 50,000 Units 1250 Mcg Cap) 50,000 units PO TuFr@0900 JOANNA Stop: 08/04/23 16:14 Last Admin: 07/05/23 16:34 Dose: 50,000 units Hydroxyzine HCl (Hydroxyzine Hcl 25 Mg Tab) 50 mg PO HSZ PRN PRN Reason: Insomnia Stop: 08/04/23 00:07 Hydroxyzine HCl (Hydroxyzine Hcl 25 Mg Tab) 25 mg PO Q4H PRN PRN Reason: Anxiety Stop: 08/04/23 00:07 Magnesium Hydroxide (Magnesium Hydroxide Susp 30 Ml Udc) 30 ml PO DAILY PRN PRN Reason: Constipation Stop: 08/04/23 00:07 Mirtazapine (Mirtazapine Tab 15 Mg Tab) 30 mg PO HS JOANNA Stop: 08/04/23 21:59 Last Admin: 07/05/23 21:18 Dose: 30 mg Sodium Chloride (Sodium Chloride 0.65% Na Soln 45 Ml ([place])) 1 - 2 sprays NA PRN PRN PRN Reason: Nasal Dryness/Congestion Stop: 08/04/23 00:07 Mental Health & Subst Abuse Tx Therapist Name of Therapist: [facility] Post Discharge Appointments Primary Care Physician Name Of Family Doctor/PCP: Melvin
[2023-07-06] MEDS: MIRTAZAPINE TAB 15 MG TAB PO SCH (21:30)
--- NOTE | 2023-07-07 09:07 | Psychiatric Progress Note ---
Date of Service July 07, 2023 Impression / Recommendations Impression Agree with assessment per Dr. Chilel: Profoundly depressed young woman with a long history of depressive episodes and chronic suicidal thoughts but no history of any previous diagnosis or treatment. She presents with classic melancholic features. She also reports anxiety with numerous features of panic. She minimizes and elides alcohol use, but has been drinking more than usual. It also transpires that she has a severe vitamin d deficiency. She is currently psychiatrically unstable and requires psychiatric hospitalization for safety, stabilization, and medication management. 07/07/2023: She states some subjective improvement in mood related to socializing with peers but still very reserved, unclear why she is not willing to involve her parents or other supports at this time. Motivational interviewing regarding considering involving a support or her parents in her treatment planning. Given ongoing headaches discussed option for SSRI augmentation, especially if headaches don't improve with mirtazapine and this ultimately needs to be discontinued. She consents to sertraline trial. Discussed medication treatment options in detail. Discussed risks, benefits and alternatives. Patient would like to start and consented to sertraline for MDD and social anxiety/MARY. Reviewed side effects including but not limited to: GI, PADILLA, sexual side effects, and counseled on black box warning of potential for emergence of or increased SI and need to let staff know should this occur or should they feel unsafe. Also discussed importance of seeking emergency care following discharge if this side effect occurs in the future with sertraline. Overall, I spent a total of 35 minutes with this case including review of chart records, direct evaluation of the patient at bedside, counseling the patient, discussion during interdisciplinary treatment rounds, risk assessment, and documentation in the electronic health record. (1) Major depressive disorder, recurrent, severe without psychotic features: (2) Vitamin D deficiency: (3) MARY (generalized anxiety disorder): Plan 07/07/2023: Start sertraline 50mg daily. Continue mirtazapine and Vit D. 07/06/2023: Continue current medications and tx plan. 07/05/2023: The patient was admitted to the [facility] ([facility]) on q15 minute checks (behavioral with suicide precautions) for safety.The patient will participate in group, recreational, and milieu therapies and will be offered additional individual and family sessions as clinically appropriate. * start mirtazapine 30 mg QPM * start vitamin D2 50,000 IU twice a week Inventory Assets Strengths: voluntary, intelligent Needs: safety and stabilization, medication adjustment, additional coping skills, increased outpatient services Suicide Risk Level Suicide Risk Level: High-Moderate (q15 min suicide checks) (severe depression with SI prior to admission, feels safe in the hospital and agrees to let staff know if she feels unsafe or requires additional support) Risk Factors Assessment Male: No : No Do You Have Access To A Gun?: No Health Problems: No Mental Health Diagnoses: No Substance Use Disorders: Yes Previous Attempt: No Previous Psychiatric Hospitalization: No Protective Factors Assessment : No Responsible for Young Children: No Employed: No Supportive Family: No Interval History Identifying Information CAROLINA NORWOOD is a 22-year-old F who currently lives in a dorm room at [employer] alone, has a history of depression symptoms but no previous diagnosis or treatment, and was admitted on 07/04/23 17:58 on a 201 voluntary commitment for suicidal thoughts. Chief Complaint "Doing things with other people is helping". Review of Systems Sleep Information Total Hours of Sleep: 7 Meal Information Percent Meal Consumed - Breakfast: 75 Percent Meal Consumed - Lunch: 75 Percent Meal Consumed - Dinner: 90 Subjective Subjective Patient was seen & assessed and interval progress reviewed with treatment team nursing and social work. Very quiet and isolative but did attend group with prompting and started to participate a bit more. Fell asleep quickly but woke up multiple times overnight. Mostly communicating with yes/no responses or only nodding when talking to RNs. Reports some improvement in her mood which she attributes to engaging in groups and socializing with peers. Still with headache today. Has not told her parents she is in the hospital, can't say why. Has one supportive friend, will consider reaching out to them today. Physical Exam Psychiatric Orientation: alert, oriented x 3 and cooperative Apperance: appropriately dressed and appropriately groomed Eye Contact: + fair eye contact Motor Behavior: no abnormal motor movements Speech: + abnormal rate/rhythm/volume of speech (increased latency of response, slow, quiet, brief) Affect: + flat affect Mood: + depressed mood and + anxious mood Thought Process: linear/logical thought process (sparse) Thought Content: + cognitive distortions, reality based without delusions and + hopelessness Suicidal Thoughts: denies suicidal plan (none for hospital) and denies suicidal intent; + reports suicidal thoughts (intermittent ) Homicidal Thoughts: denies homicidal thoughts Hallucinations: no auditory hallucinations and no visual hallucinations Cognition: recent memory grossly intact, remote memory grossly intact and language grossly intact; + attention not intact (unclear if due to latency) Estimated Intelligence: consistent with education level Insight: + limited insight Judgment: + limited judgement Vital Signs (Past 24 Hours) Last Vital Signs Temp 37.3 C 07/07/23 06:54 Pulse 73 07/07/23 06:54 Resp 16 07/07/23 06:54 BP 108/63 07/07/23 06:56 Pulse Ox 98 07/07/23 06:54 O2 Del Method Room Air 07/07/23 06:54 Results & Data ([facility]) Current Inpatient Medications Current Inpatient Medications: Current Inpatient Medications Acetaminophen (Acetaminophen 325 Mg Tab) 650 mg PO Q4H PRN PRN Reason: Headache or Minor Fever Stop: 08/04/23 00:07 Last Admin: 07/06/23 11:15 Dose: 650 mg Al Hydrox/Mg Hydrox/Simethicone (Aluminum/Magnesium Susp 30 Ml Udc) 30 ml PO Q4H PRN PRN Reason: GI Upset Stop: 08/04/23 00:07 Bismuth Subsalicylate (Bismuth Subsalicylate Liqd 236 Ml) 15 ml PO PRN PRN PRN Reason: Loose Stool Stop: 08/04/23 00:07 Ergocalciferol (Ergocalciferol 50,000 Units 1250 Mcg Cap) 50,000 units PO TuFr@0900 JOANNA Stop: 08/04/23 16:14 Last Admin: 07/05/23 16:34 Dose: 50,000 units Hydroxyzine HCl (Hydroxyzine Hcl 25 Mg Tab) 50 mg PO HSZ PRN PRN Reason: Insomnia Stop: 08/04/23 00:07 Hydroxyzine HCl (Hydroxyzine Hcl 25 Mg Tab) 25 mg PO Q4H PRN PRN Reason: Anxiety Stop: 08/04/23 00:07 Magnesium Hydroxide (Magnesium Hydroxide Susp 30 Ml Udc) 30 ml PO DAILY PRN PRN Reason: Constipation Stop: 08/04/23 00:07 Mirtazapine (Mirtazapine Tab 15 Mg Tab) 30 mg PO HS JOANNA Stop: 08/04/23 21:59 Last Admin: 07/06/23 21:30 Dose: 30 mg Sodium Chloride (Sodium Chloride 0.65% Na Soln 45 Ml ([place])) 1 - 2 sprays NA PRN PRN PRN Reason: Nasal Dryness/Congestion Stop: 08/04/23 00:07 Mental Health & Subst Abuse Tx Therapist Name of Therapist: [facility] Post Discharge Appointments Primary Care Physician Name Of Family Doctor/PCP: MORALES
[2023-07-07] MEDS: SERTRALINE HCL 50 MG TABLET PO SCH (13:09)
[2023-07-07] MEDS: MIRTAZAPINE TAB 15 MG TAB PO SCH (21:35)
[2023-07-08] MEDS: SERTRALINE HCL 50 MG TABLET PO SCH (08:52)
--- NOTE | 2023-07-08 08:58 | Psychiatric Progress Note ---
Date of Service July 08, 2023 Impression / Recommendations Impression Agree with assessment per Dr. Chilel: Profoundly depressed young woman with a long history of depressive episodes and chronic suicidal thoughts but no history of any previous diagnosis or treatment. She presents with classic melancholic features. She also reports anxiety with numerous features of panic. She minimizes and elides alcohol use, but has been drinking more than usual. It also transpires that she has a severe vitamin d deficiency. She is currently psychiatrically unstable and requires psychiatric hospitalization for safety, stabilization, and medication management. 07/08/2023: Mood improving a bit, still very reserved and withdrawn but engaging a bit more overall. Reached out to her mother who she found supportive and is now willing to involve in safety planning/support meeting. No nausea with sertraline dose this morning which is improved from nausea after initial dose yesterday. Overall, I spent a total of 35 minutes with this case including review of chart records, direct evaluation of the patient at bedside, counseling the patient, discussion during interdisciplinary treatment rounds, risk assessment, and documentation in the electronic health record. (1) Major depressive disorder, recurrent, severe without psychotic features: (2) Vitamin D deficiency: (3) MARY (generalized anxiety disorder): Plan 07/08/2023: Continue current medications and tx plan. Agreeable to support meeting with her mother, needs outpatient providers, needs to work on safety planning 07/07/2023: Start sertraline 50mg daily. Continue mirtazapine and Vit D. 07/06/2023: Continue current medications and tx plan. 07/05/2023: The patient was admitted to the [facility] ([facility]) on q15 minute checks (behavioral with suicide precautions) for safety.The patient will participate in group, recreational, and milieu therapies and will be offered additional individual and family sessions as clini kamila appropriate. * start mirtazapine 30 mg QPM * start vitamin D2 50,000 IU twice a week Inventory Assets Strengths: voluntary, intelligent Needs: safety and stabilization, medication adjustment, additional coping skills, increased outpatient services Suicide Risk Level Suicide Risk Level: Moderate (q15 min suicide checks) (severe depression with SI prior to admission, mood improving a bit feels safe in the hospital and agrees to let staff know if she feels unsafe or requires additional support) Risk Factors Assessment Male: No : No Do You Have Access To A Gun?: No Health Problems: No Mental Health Diagnoses: No Substance Use Disorders: Yes Previous Attempt: No Previous Psychiatric Hospitalization: No Protective Factors Assessment : No Responsible for Young Children: No Employed: No Supportive Family: No Interval History Identifying Information CAROLINA NORWOOD is a 22-year-old F who currently lives in a dorm room at [facility] alone, has a history of depression symptoms but no previous diagnosis or treatment, and was admitted on 07/04/23 17:58 on a 201 voluntary commitment for suicidal thoughts. Chief Complaint "I'm good". Review of Systems Sleep Information Total Hours of Sleep: 7.25 Meal Information Percent Meal Consumed - Breakfast: 100 Percent Meal Consumed - Lunch: 80 Percent Meal Consumed - Dinner: 90 Subjective Subjective Patient was seen & assessed and interval progress reviewed with treatment team nursing and social work. Called her mother yesterday afternoon. Still reserved but engaging slightly more and attending groups. Watched a movie with peers. Had some nausea yesterday. No headache or nausea today. Slept better last night. Willing to involve her mother in a support meeting. Physical Exam Psychiatric Orientation: alert, oriented x 3 and cooperative Apperance: appropriately dressed and appropriately groomed Eye Contact: + fair eye contact Motor Behavior: no abnormal motor movements Speech: + abnormal rate/rhythm/volume of speech (quiet, brief) Affect: + flat affect Mood: + depressed mood and + anxious mood Thought Process: linear/logical thought process (sparse) Thought Content: + cognitive distortions and reality based without delusions Suicidal Thoughts: denies suicidal thoughts (intermittent but none so far today ), denies suicidal plan (none for hospital) and denies suicidal intent Homicidal Thoughts: denies homicidal thoughts Hallucinations: no auditory hallucinations and no visual hallucinations Cognition: recent memory grossly intact, remote memory grossly intact, attention grossly intact and language grossly intact Estimated Intelligence: consistent with education level Insight: + limited insight Judgment: + limited judgement Vital Signs (Past 24 Hours) Last Vital Signs Temp 37.1 C 07/08/23 06:34 Pulse 101 H 07/08/23 06:35 Resp 16 07/08/23 06:34 BP 114/77 07/08/23 06:35 Pulse Ox 98 07/07/23 06:54 O2 Del Method Room Air 07/07/23 06:54 Results & Data ([facility]) Current Inpatient Medications Current Inpatient Medications: Current Inpatient Medications Acetaminophen (Acetaminophen 325 Mg Tab) 650 mg PO Q4H PRN PRN Reason: Headache or Minor Fever Stop: 08/04/23 00:07 Last Admin: 07/06/23 11:15 Dose: 650 mg Al Hydrox/Mg Hydrox/Simethicone (Aluminum/Magnesium Susp 30 Ml Udc) 30 ml PO Q4H PRN PRN Reason: GI Upset Stop: 08/04/23 00:07 Bismuth Subsalicylate (Bismuth Subsalicylate Liqd 236 Ml) 15 ml PO PRN PRN PRN Reason: Loose Stool Stop: 08/04/23 00:07 Ergocalciferol (Ergocalciferol 50,000 Units 1250 Mcg Cap) 50,000 units PO TuFr@0900 JOANNA Stop: 08/04/23 16:14 Last Admin: 07/05/23 16:34 Dose: 50,000 units Hydroxyzine HCl (Hydroxyzine Hcl 25 Mg Tab) 50 mg PO HSZ PRN PRN Reason: Insomnia Stop: 08/04/23 00:07 Hydroxyzine HCl (Hydroxyzine Hcl 25 Mg Tab) 25 mg PO Q4H PRN PRN Reason: Anxiety Stop: 08/04/23 00:07 Magnesium Hydroxide (Magnesium Hydroxide Susp 30 Ml Udc) 30 ml PO DAILY PRN PRN Reason: Constipation Stop: 08/04/23 00:07 Mirtazapine (Mirtazapine Tab 15 Mg Tab) 30 mg PO HS JOANNA Stop: 08/04/23 21:59 Last Admin: 07/07/23 21:35 Dose: 30 mg Sertraline HCl (Sertraline Hcl 50 Mg Tablet) 50 mg PO QAM JOANNA Stop: 08/06/23 11:44 Last Admin: 07/08/23 08:52 Dose: 50 mg Sodium Chloride (Sodium Chloride 0.65% Na Soln 45 Ml ([place])) 1 - 2 sprays NA PRN PRN PRN Reason: Nasal Dryness/Congestion Stop: 08/04/23 00:07 Mental Health & Subst Abuse Tx Therapist Name of Therapist: [facility] Post Discharge Appointments Primary Care Physician Name Of Family Doctor/PCP: Melvin
[2023-07-08] MEDS: MIRTAZAPINE TAB 15 MG TAB PO SCH (21:21)
--- NOTE | 2023-07-09 09:03 | Psychiatric Progress Note ---
Date of Service July 09, 2023 Impression / Recommendations Impression Agree with assessment per Dr. Chilel: Profoundly depressed young woman with a long history of depressive episodes and chronic suicidal thoughts but no history of any previous diagnosis or treatment. She presents with classic melancholic features. She also reports anxiety with numerous features of panic. She minimizes and elides alcohol use, but has been drinking more than usual. It also transpires that she has a severe vitamin d deficiency. She is currently psychiatrically unstable and requires psychiatric hospitalization for safety, stabilization, and medication management. 07/09/2023: Mood improving, smiling a bit today, more expansive thought process and able to involve her mother in safety planning. Tolerating her medications, will monitor to ensure no re-emergence of anxiety. Overall, I spent a total of 25 minutes with this case including review of chart records, direct evaluation of the patient at bedside, counseling the patient, discussion during interdisciplinary treatment rounds, risk assessment, and documentation in the electronic health record. (1) Major depressive disorder, recurrent, severe without psychotic features: (2) Vitamin D deficiency: (3) MARY (generalized anxiety disorder): Plan 07/09/2023: Continue current medications and tx plan. 07/08/2023: Continue current medications and tx plan. Agreeable to support meeting with her mother, needs outpatient providers, needs to work on safety planning 07/07/2023: Start sertraline 50mg daily. Continue mirtazapine and Vit D. 07/06/2023: Continue current medications and tx plan. 07/05/2023: The patient was admitted to the [facility] ([facility]) on q15 minute checks (behavioral with suicide precautions) for safety.The patient will participate in group, recreational, and milieu therapies and will be offered additional individual and family sessions as clinically appropriate. * start mirtazapine 30 mg QPM * start vitamin D2 50,000 IU twice a week Inventory Assets Strengths: voluntary, intelligent Needs: safety and stabilization, medication adjustment, additional coping skills, increased outpatient services Suicide Risk Level Suicide Risk Level: Moderate (q15 min suicide checks) (severe depression with SI prior to admission, mood improving, denies SI and feels safe in the hospital and agrees to let staff know if she feels unsafe or requires additional support) Risk Factors Assessment Male: No : No Do You Have Access To A Gun?: No Health Problems: No Mental Health Diagnoses: No Substance Use Disorders: Yes Previous Attempt: No Previous Psychiatric Hospitalization: No Protective Factors Assessment : No Responsible for Young Children: No Employed: No Supportive Family: No Interval History Identifying Information CAROLINA NORWOOD is a 22-year-old F who currently lives in a dorm room at [facility] alone, has a history of depression symptoms but no previous diagnosis or treatment, and was admitted on 07/04/23 17:58 on a 201 voluntary commitment for suicidal thoughts. Chief Complaint "I'm good". Review of Systems Sleep Information Total Hours of Sleep: 7 Meal Information Percent Meal Consumed - Breakfast: 90 Percent Meal Consumed - Lunch: 100 Percent Meal Consumed - Dinner: 100 Subjective Subjective Patient was seen & assessed and interval progress reviewed with treatment team nursing and social work. Had a meeting with her mother over the phone. Reports she had a "different type of anxiety" yesterday late in the day with feeling more "jumpy" but denies any of these symptoms so far today. Denies any other medication side effects. Feels her mood is improving and that she can imagine being able to focus on school work again. Physical Exam Psychiatric Orientation: alert, oriented x 3 and cooperative Apperance: appropriately dressed and appropriately groomed Eye Contact: good eye contact Motor Behavior: no abnormal motor movements Speech: + abnormal rate/rhythm/volume of speech (quiet, more expansive ) Affect: + constricted affect (but with some smiles today) Mood: + anxious mood Thought Process: goal directed thought process Thought Content: reality based without delusions Suicidal Thoughts: denies suicidal thoughts, denies suicidal plan and denies suicidal intent Homicidal Thoughts: denies homicidal thoughts Hallucinations: no auditory hallucinations and no visual hallucinations Cognition: recent memory grossly intact, remote memory grossly intact, attention grossly intact and language grossly intact Estimated Intelligence: consistent with education level Insight: + fair insight Judgment: + fair judgement Vital Signs (Past 24 Hours) Last Vital Signs Temp 37 C 07/09/23 06:40 Pulse 96 H 07/09/23 06:40 Resp 16 07/09/23 06:40 BP 114/71 07/09/23 06:40 Pulse Ox 98 07/07/23 06:54 O2 Del Method Room Air 07/07/23 06:54 Results & Data ([facility]) Current Inpatient Medications Current Inpatient Medications: Current Inpatient Medications Acetaminophen (Acetaminophen 325 Mg Tab) 650 mg PO Q4H PRN PRN Reason: Headache or Minor Fever Stop: 08/04/23 00:07 Last Admin: 07/06/23 11:15 Dose: 650 mg Al Hydrox/Mg Hydrox/Simethicone (Aluminum/Magnesium Susp 30 Ml Udc) 30 ml PO Q4H PRN PRN Reason: GI Upset Stop: 08/04/23 00:07 Bismuth Subsalicylate (Bismuth Subsalicylate Liqd 236 Ml) 15 ml PO PRN PRN PRN Reason: Loose Stool Stop: 08/04/23 00:07 Ergocalciferol (Ergocalciferol 50,000 Units 1250 Mcg Cap) 50,000 units PO TuFr@0900 JOANNA Stop: 08/04/23 16:14 Last Admin: 07/05/23 16:34 Dose: 50,000 units Hydroxyzine HCl (Hydroxyzine Hcl 25 Mg Tab) 50 mg PO HSZ PRN PRN Reason: Insomnia Stop: 08/04/23 00:07 Hydroxyzine HCl (Hydroxyzine Hcl 25 Mg Tab) 25 mg PO Q4H PRN PRN Reason: Anxiety Stop: 08/04/23 00:07 Magnesium Hydroxide (Magnesium Hydroxide Susp 30 Ml Udc) 30 ml PO DAILY PRN PRN Reason: Constipation Stop: 08/04/23 00:07 Mirtazapine (Mirtazapine Tab 15 Mg Tab) 30 mg PO HS JOANNA Stop: 08/04/23 21:59 Last Admin: 07/08/23 21:21 Dose: 30 mg Sertraline HCl (Sertraline Hcl 50 Mg Tablet) 50 mg PO QAM JOANNA Stop: 08/06/23 11:44 Last Admin: 07/08/23 08:52 Dose: 50 mg Sodium Chloride (Sodium Chloride 0.65% Na Soln 45 Ml ([place])) 1 - 2 sprays NA PRN PRN PRN Reason: Nasal Dryness/Congestion Stop: 08/04/23 00:07 Mental Health & Subst Abuse Tx Psychiatrist Name of Psychiatrist: MARIFER Psychiatrist's Date Of Appointment With Psychiatric Provider: 07/16/2023 Time of Appointment with Psychiatrist: 9:30am Psychiatric Appointment Comment: [facility], 3rd floor [address] Therapist Name of Therapist: [facility] -1x follow-up Therapist's Clinical Associate Name of Clinical Associate: [facility]- Crisis [facility] Specialist Phone Number for Clinical Associate: [phone] Time of Appointment with Clinical Associate: referral sent Post Discharge Appointments Primary Care Physician Name Of Family Doctor/PCP: Melvin Primary Care Provider Appointment Comment: please follow up as needed Contact Information Discharge Discharge Address: [facility]
[2023-07-09] MEDS: ERGOCALCIFEROL 50,000 UNITS 1250 MCG CAP PO SCH (09:22)
[2023-07-09] MEDS: SERTRALINE HCL 50 MG TABLET PO SCH (09:22)
[2023-07-09] MEDS: MIRTAZAPINE TAB 15 MG TAB PO SCH (22:03)
[2023-07-10] MEDS: SERTRALINE HCL 50 MG TABLET PO SCH (08:53)
--- NOTE | 2023-07-10 08:59 | Discharge Summary ---
Date of Service July 10, 2023 History of Present Illness Per admission H&P by Dr. Chilel: As part of a thorough review of the available medical records, I have read and confirmed the following note by the ED physician: "22-year-old female presents emergency department as she reportedly spoke to outpatient psychiatry and stated that she wanted to harm herself by running in front of car; patient denies any homicidal ideations. Patient denies any ingestions, patient denies alcohol or drugs. Patient was brought in by the police. She states that she is under a lot of stress due to academics and has been evaluated in the past including seeing a counselor last semester." and the following notes by the ED psychiatric supervisor case loading: "The patient initially stated she didnt have suicidal ideation but when questioned about her comments to [facility], she admitted to thinking of running in front of a car. When asked later if she was still having suicidal ideations, she laughed and said yes. The patient reports her main stressor is school and that she reached out to [facility] looking for help. The patient denies any drug or alcohol use or ever being inpatient for treatment (reports she utilized [facility] as well last year). Medical clearance explained." "Update received from Ellen with [facility] prior to meeting with the patient. She reports they dont feel they have enough criteria to petition for a 302, but the patients stories seemed to be inconsistent at times. She reports the patient had moved and she didnt know where, but the told them they moved to [place] and she just didnt know their address. Ellen also reports the patient initially denied D&A but then admitted to use." "Patient presents sad, flat, speaks softly, but remains cooperative in answering questions asked of her. Patient reports suicidal ideations for as long as she remembers, but recently these thought now felt real. Patient identified plan as to jump in front of car or train or to mix medications with alcohol. Patient is very unsure if she can be self by herself. Patient has not been submitting coursework for 5 weeks, reporting school was primary motivation for living, but she no longer feels that way. Patient reports depressive symptoms as socially withdrawing, lack of motivation, loss of daily functioning, feelings of helpless/hopelessness, decrease in concentration, appetite and completing ADLs. Patient reports mild anxiety on most days with symptoms of excessive worry, palpitations and trembling. Patient reports occasional alcohol use, denies drug or tobacco use. 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 Although patient is not submitting school work, she is taking quizzes and tests and has passing grades. Patient saw [facility] today, but has a history of seeing them last semester. Patient does not taking any medications, nor has any medical conditions. Explained to patient that the doctors recommendation is for inpatient psychiatric treatment, patient is agreeable to sign herself in and to participate in programming." Review of the medical record reveals no previous or outside psychiatric records. Review of pertinent labs reveals they are significant for microcytic, hypoch romic anemia, hypokalemia. A urine toxicology screen was negative for all tested substrates. BAL was <10. A vitamin D level drawn earlier today was severely deficient at 8.4 ng/mL. Pt reports a history of episodes during which she has no interest, energy, motivation and during which her concentration is poor, she's anhedonic, her sleep and appetite are poor, and she feels hopeless or suicidal. She has never sought treatment before. The current episode started about a month and a half ago. She has spent most of her time in bed, but says she has a lot of trouble getting to sleep then wakes often. She never feels rested after sleeping. She insists her appetite is "normal" and that she goes to the [employer] for meals. Her appearance and her report of rarely getting out of bed seem to be at odds with this. Despite saying that her academic work is what keeps her going, she hasn't attended classes for over a month. She says her grades are OK because she does tests and quizzes online. Her chronic vague suicidal thoughts have become intrusive and constant and she's begun entertaining specific plans such as jumping in front of a train or overdosing on something. She acknowledges she's "been drinking some" but is very guarded about amounts. Physical Exam Vital Signs (Past 24 Hours) Last Vital Signs Temp 37.1 C 07/10/23 06:39 Pulse 82 07/10/23 06:40 Resp 16 07/10/23 06:39 BP 105/72 07/10/23 06:40 Pulse Ox 98 07/07/23 06:54 O2 Del Method Room Air 07/07/23 06:54 See admission H&P and DOD summary. Principal Diagnosis Major Depressive Disorder Psychiatric Data See daily stay summary. In short, patient was engaged with the social/therapeutic milieu of the unit, safety was maintained and the patient was cooperative with care. Medication changes included initiation of mirtazapine 30mg HS po and sertraline 50mg daily for MDD/MARY and they tolerated this well with exception of some chest discomfort briefly the evening prior to discharge which was transient so an EKG was done which showed sinus rhythm with normal QTc and she denied any further symptoms of chest pain, no SOB, no pain radiation nor racing heart/palpitations. A family session was held and safety plan was completed prior to discharge. For your severe Vitamin D deficiency, continue prescription Vitamin D2 (ergocalciferol) 50,000 IU one capsule by mouth twice a weekfor 8 weeks. When the prescription Vitamin D2 is finished, start dgik-arm-wlgtoio Vitamin D3 (cholecalciferol) 2,000 IU one capsule by mouthevery day. After a month of daily Vitamin D3 2,000 IU you should have your Vitamin D level re-checked. She participated in safety planning and in discussions about ways to seek support and recognizing warning signs and utilizing coping skills. Reviewed mobile apps that could be used for additional ways to have their safety plan and contacts easily available should thoughts of SI re-emerge in the future. Reviewed importance of seeking emergency care should SI intensify, worsen or should they feel unsafe in the future which they agree to do. On the day of discharge she stated her mood was "good" and remained future-oriented including seeing her friends, eating her favorite pasta meal at the [employer], watching her favorite shows on [employer], getting back to class and engaging in aftercare appointments for psychiatry via [facility], working with her new Crisis Peer and [employer] student care and advocacy. Day of Discharge Assessment Today the patient voices readiness for discharge. They note improvement in mood and anxiety. They deny thoughts of harm to self or others. Thoughts are organized and they are clinically improved from admission. There is no evidence of psychosis. They improved in the hospital with support and medication adjustments. They agree to take medications as prescribed and keep follow-up appointments. At the time of the discharge they are deemed to be stable and appropriate for outpatient level of care. They are not deemed to be at imminent risk of harm to self or others. They are aware of emergency and crisis services. Knows to call 911 or go to nearest emergency care center if in a crisis which cannot be handled as an outpatient. Overall, I spent a total of 45 minutes with this case including review of chart records, direct evaluation of the patient at bedside, counseling the patient, disposition planning, review of EKG, ordering medication, discussion during interdisciplinary treatment rounds, risk assessment, and documentation in the electronic health record. Transition of Care Transition Of Care Record: was reviewed with the patient Advance Directives Advance Directives Information Provided: No Advance Directives: No Mental Health Advance Directive: No Advance Directives on File: No Living Will: No Power of Laborer Mine: No Advance Directives Reason:: Declines as Mental Health Visit. Suicide Risk Level Suicide Risk Level Comments: Acute risk is low given improvement in mood and denial of SI, lack of access to lethal means, plan to avoid substance use, improvement in sleep and hopefulness. Chronic risk is low to moderate given some non-modifiable risk factors: psychiatric co-morbid diagnoses, emotional reactivity, limited social support, but also with protective factors including: student, sense of responsibility to family and social supports, outpatient care in place, positive coping skills, positive problem solving, capacity to establish therapeutic alliance, willingness to engage with treatment and capacity for self-observation. Counseled on ways to reduce acute and chronic risk including engaging with outpatient providers, using safety plan if needed, utilizing supports, taking medication, and using coping skills. Modifiable risk factors of SI, anxiety, sleep and depression were addressed during hospitalization through development of new coping skills, family meeting, safety planning, and medication adjustments. Risk Factors Assessment Male: No : No Do You Have Access To A Gun?: No Health Problems: No Mental Health Diagnoses: No Substance Use Disorders: Yes Previous Attempt: No Family History of Suicide: No Previous Psychiatric Hospitalization: No Hopelessness: No Protective Factors Assessment : No Responsible for Young Children: No Employed: No Stable Relationships: Yes Supportive Family: Yes Discharge Data Lab Results 07/04/23 07/04/23 07/04/23 13:12 13:12 13:12 WBC 8.95 RBC 4.44 Hgb 8.1 L Hct 27.9 L MCV 62.8 L MCH 18.2 L MCHC 29.0 L RDW Std Deviation 39.2 RDW Coeff of Bhavik 18.0 H Plt Count 369 MPV 9.8 Immature Gran % (Auto) 0.2 Neut % (Auto) 47.3 Lymph % (Auto) 30.6 [place] % (Auto) 6.6 Eos % (Auto) 14.7 Baso % (Auto) 0.6 Neut # (Auto) 4.23 Lymph # (Auto) 2.74 [place] # (Auto) 0.59 Eos # (Auto) 1.32 H Baso # (Auto) 0.05 Immature Gran # (Auto) 0.02 Hypochromasia Present Microcytosis Present ESR Sodium 137 Potassium 3.2 L Chloride 107 Carbon Dioxide 25 Anion Gap 5 BUN 8 Creatinine 0.61 Est Cr Clr Drug Dosing 99.5 Est GFR ( Amer) > 150.0 Est GFR (Non-Af Amer) 129.6 BUN/Creatinine Ratio 13.1 Glucose 120 H Calcium 9.4 Total Bilirubin 0.3 AST 20 ALT 9 Alkaline Phosphatase 60 Total Protein 8.4 H Albumin 4.7 Globulin 3.7 Albumin/Globulin Ratio 1.3 Vitamin B12 25-OH Vitamin D Total Folate TSH 2.331 Urine Color Urine Appearance Urine pH Ur Specific [place] Urine Protein Urine Glucose (UA) Urine Ketones Urine Blood Urine Nitrite Urine Bilirubin Urine Urobilinogen Ur Leukocyte Esterase Urine Test Salicylates < 3.0 L Urine Opiates Screen Ur Methadone, Qual Acetaminophen < 3 L Urine Barbiturates Ur Phencyclidine (PCP) U Amphetamin/Meth Scrn MDMA (Ecstasy) Screen U Benzodiazepines Scrn Ur Cocaine Metabolite U Marijuana (THC) Screen Ethyl Alcohol mg/dL SARS-CoV-2, RNA, NAAT 07/04/23 07/04/23 07/04/23 13:12 Unknown Unknown WBC RBC Hgb Hct MCV MCH MCHC RDW Std Deviation RDW Coeff of Bhavik Plt Count MPV Immature Gran % (Auto) Neut % (Auto) Lymph % (Auto) [place] % (Auto) Eos % (Auto) Baso % (Auto) Neut # (Auto) Lymph # (Auto) [place] # (Auto) Eos # (Auto) Baso # (Auto) Immature Gran # (Auto) Hypochromasia Microcytosis ESR Sodium Potassium Chloride Carbon Dioxide Anion Gap BUN Creatinine Est Cr Clr Drug Dosing Est GFR ( Amer) Est GFR (Non-Af Amer) BUN/Creatinine Ratio Glucose Calcium Total Bilirubin AST ALT Alkaline Phosphatase Total Protein Albumin Globulin Albumin/Globulin Ratio Vitamin B12 25-OH Vitamin D Total Folate TSH Urine Color Yellow Urine Appearance Clear Urine pH 5.5 Ur Specific [place] 1.006 Urine Protein Negative Urine Glucose (UA) Negative Urine Ketones Negative Urine Blood Negative Urine Nitrite Negative Urine Bilirubin Negative Urine Urobilinogen Negative Ur Leukocyte Esterase Negative Urine Test Salicylates Urine Opiates Screen Neg Ur Methadone, Qual Neg Acetaminophen Urine Barbiturates Neg Ur Phencyclidine (PCP) Neg U Amphetamin/Meth Scrn Neg MDMA (Ecstasy) Screen Neg U Benzodiazepines Scrn Neg Ur Cocaine Metabolite Neg U Marijuana (THC) Screen Neg Ethyl Alcohol mg/dL < 10.0 SARS-CoV-2, RNA, NAAT 07/04/23 07/04/23 07/05/23 Unknown Unknown 11:52 WBC RBC Hgb Hct MCV MCH MCHC RDW Std Deviation RDW Coeff of Bhavik Plt Count MPV Immature Gran % (Auto) Neut % (Auto) Lymph % (Auto) [place] % (Auto) Eos % (Auto) Baso % (Auto) Neut # (Auto) Lymph # (Auto) [place] # (Auto) Eos # (Auto) Baso # (Auto) Immature Gran # (Auto) Hypochromasia Microcytosis ESR 29 H Sodium Potassium Chloride Carbon Dioxide Anion Gap BUN Creatinine Est Cr Clr Drug Dosing Est GFR ( Amer) Est GFR (Non-Af Amer) BUN/Creatinine Ratio Glucose Calcium Total Bilirubin AST ALT Alkaline Phosphatase Total Protein Albumin Globulin Albumin/Globulin Ratio Vitamin B12 25-OH Vitamin D Total Folate TSH Urine Color Urine Appearance Urine pH Ur Specific [place] Urine Protein Urine Glucose (UA) Urine Ketones Urine Blood Urine Nitrite Urine Bilirubin Urine Urobilinogen Ur Leukocyte Esterase Urine Test Negative Salicylates Urine Opiates Screen Ur Methadone, Qual Acetaminophen Urine Barbiturates Ur Phencyclidine (PCP) U Amphetamin/Meth Scrn MDMA (Ecstasy) Screen U Benzodiazepines Scrn Ur Cocaine Metabolite U Marijuana (THC) Screen Ethyl Alcohol mg/dL SARS-CoV-2, RNA, NAAT NEGATIVE 07/05/23 07/05/23 11:52 11:52 WBC RBC Hgb Hct MCV MCH MCHC RDW Std Deviation RDW Coeff of Bhavik Plt Count MPV Immature Gran % (Auto) Neut % (Auto) Lymph % (Auto) [place] % (Auto) Eos % (Auto) Baso % (Auto) Neut # (Auto) Lymph # (Auto) [place] # (Auto) Eos # (Auto) Baso # (Auto) Immature Gran # (Auto) Hypochromasia Microcytosis ESR Sodium Potassium Chloride Carbon Dioxide Anion Gap BUN Creatinine Est Cr Clr Drug Dosing Est GFR ( Amer) Est GFR (Non-Af Amer) BUN/Creatinine Ratio Glucose Calcium Total Bilirubin AST ALT Alkaline Phosphatase Total Protein Albumin Globulin Albumin/Globulin Ratio Vitamin B12 300 25-OH Vitamin D Total 8.4 L Folate > 22.30 TSH Urine Color Urine Appearance Urine pH Ur Specific [place] Urine Protein Urine Glucose (UA) Urine Ketones Urine Blood Urine Nitrite Urine Bilirubin Urine Urobilinogen Ur Leukocyte Esterase Urine Test Salicylates Urine Opiates Screen Ur Methadone, Qual Acetaminophen Urine Barbiturates Ur Phencyclidine (PCP) U Amphetamin/Meth Scrn MDMA (Ecstasy) Screen U Benzodiazepines Scrn Ur Cocaine Metabolite U Marijuana (THC) Screen Ethyl Alcohol mg/dL SARS-CoV-2, RNA, NAAT Hospital Course (1) Major depressive disorder, recurrent, severe without psychotic features: (2) Vitamin D deficiency: (3) MARY (generalized anxiety disorder): Plan 07/09/2023: Continue current medications and tx plan. 07/08/2023: Continue current medications and tx plan. Agreeable to support meeting with her mother, needs outpatient providers, needs to work on safety planning 07/07/2023: Start sertraline 50mg daily. Continue mirtazapine and Vit D. 07/06/2023: Continue current medications and tx plan. 07/05/2023: The patient was admitted to the [facility] ([facility] inpatient mental health unit) on q15 minute checks (behavioral with suicide precautions) for safety.The patient will participate in group, recreational, and milieu t herapies and will be offered additional individual and family sessions as clinically appropriate. * start mirtazapine 30 mg QPM * start vitamin D2 50,000 IU twice a week Mental Health & Subst Abuse Tx Psychiatrist Name of Psychiatrist: MARIFER Psychiatrist's Date Of Appointment With Psychiatric Provider: 07/16/2023 Time of Appointment with Psychiatrist: 9:30am Psychiatric Appointment Comment: [facility], 3rd floor [address] Therapist Name of Therapist: MARIFER -1x follow-up with Angelina Therapist's Date of Therapist Appointment: 07/15/23 Time of Therapist Appointment: 2:00 PM Therapy Appointment Comment: [facility] building, 3rd floor [address] Vice Investigator Name of Vice Investigator: [facility]- Crisis Yarn Mercerizer Operator Helper Phone Number for Vice Investigator: [phone] Time of Appointment with Vice Investigator: referral sent Post Discharge Appointments Primary Care Physician Name Of Family Doctor/PCP: S Primary Care Provider Appointment Comment: please follow up as needed Other #1: Name of Aftercare Appointment: Student Care and Advocacy Phone Number of Aftercare Appointment: [phone] Date of Aftercare Appointment: 07/11/23 Time of Aftercare Appointment: 1:15pm Aftercare Appointment Comment: Zoom link will be sent to U email Contact Information Discharge Discharge Address: [facility] Discharge Plan Discharge Items Patient Disposition: Home - Self-Care Reason For Visit: MAJOR DEPRESSIVE D/O Discharge Diagnosis: Major Depressive Disorder Activity: Resume your previous activity Non-emergency contact: Primary Care Provider and Psychiatrist Call non-emergency contact if: you have any medication questions and your symptoms worsen Follow-up/Referrals: PCP,NO [Primary Care Provider] - Diet: Regular Addtl Attending Provider Instructions: Optional mobile apps we discussed: -Suicide safety plan -Virtual Hope Box SPECIAL CARE INSTRUCTIONS: 1. Follow through with your scheduled aftercare appointments. If unable to keep an appointment, please call to reschedule. 2. Take your medication only as prescribed. Medication should not be changed or stopped without the approval of your doctor. In the event of worsening symptoms or concerns about side effects, contact your doctor immediately. 3. Utilize new healthy coping skills, anger management skills, and stress management skills learned during your hospitalization. Journal feelings and process them with a support person. Identify stressors or situations that may result in relapse, deterioration or inappropriate behaviors and develop a plan to deal with those issues. 4. If your coping skills are ineffective and you are in crisis, contact your outpatient providers for direction. If unable to reach your providers, please call the [facility] CRISIS LINE AT , go to the [facility] walk-in center at [address] [place] [address], [address], [place], or go to the closest Emergency Room. 5. Avoid alcohol and un-prescribed drugs. 6. You have been provided with the Mental Health Advance Directives Pamphlet for your review. 7. Your condition is stable for discharge to outpatient level of care, but recovery is an ongoing process. Ifthoughts to harm yourself or others return, follow the safety plan developed during your stay. Planning for a safe return home includes securing weapons. Our treatment team recommends weaponsbe removed from the home until your outpatient provider reassesses your progress. In rare cases where the items themselvescannot be removed, guns and ammunitionshould be secured separatelyand keys stored by a reliable personoutside of the home. If you were admitted on an involuntary commitment, the police or other legal authorities may be involved in this process. AFTERCARE APPOINTMENTS: * Please call your insurance company prior to your scheduled appointment to confirm your aftercare providers are covered. Take your insurance information to your appointments. WHO TO CALL AND WHEN: Medical Emergencies: For questions or emergencies related to your hospital stay, please contact the Inpatient Behavioral Health Unit at [phone]. A judo instructor is on-call 01/04 for the Behavioral Health Unit for emergencies At any time you feel your situation is an emergency, you may also call 911 immediately. National Crisis Line: 988 Pending Studies at Discharge: No Stand-Alone Forms: My [facility] Medications and DC Order Prescriptions: New mirtazapine 30 mg tablet 30 mg PO HS 30 Days Qty: 30 0RF sertraline 50 mg Tablet 50 mg PO QAM 30 Days Qty: 30 0RF ergocalciferol (vitamin D2) 1,250 mcg (50,000 unit) Capsule 50,000 unit PO TuFr@0900 30 Days Qty: 8 0RF Discharge Orders: Discharge Order (Routine); Ordered 07/10/23 Ordered By: Michelle Fernando Admission Data Admit Date/Time: 07/04/23 17:58 Attending Provider: Michelle Fernando Admit Provider: Roni Chilel Primary Care Provider: PCP,NO Other Interventions: Discharge Summary Assessment (RN) Last Done: 07/10/23 09:47 PSY Interdisciplinary Discharge Planning Last Done: 07/10/23 11:06 Coding Level of Care Code 17477 D/C day mgmt > 30 min Diagnoses Major depressive disorder, recurrent, severe without psychotic features F33.2 Vitamin D deficiency E55.9 MARY (generalized anxiety disorder) F41.1
--- NOTE | 2023-07-10 12:05 | Electrocardiogram Report ---
Test Reason : Blood Pressure : / mmHG Vent. Rate : 080 BPM Atrial Rate : 080 BPM P-R Int : 094 ms QRS Dur : 076 ms QT Int : 370 ms P-R-T Axes : 016 084 051 degrees QTc Int : 426 ms Sinus rhythm Nonspecific ST abnormality Otherwise normal ECG No previous ECGs available Confirmed by Nelson Jay ([id number]) on 07/10/2023 12:04:41 PM Referred By: REFERRED SELF Confirmed By:Crow Jay
== END 2023-07-10 12:10 | disposition home or self-care (01) | DRG 885 ==
LOC: ED 12:25 → SUATTDRO 17:58 → 3S 17:58